=== PATIENT | male | born 1975 | race Hispanic/Latino ===

== ENCOUNTER 2018-08-17 03:36 | Inpatient (IN) | payer MEDICARE, MEDICAID ==
[2018-08-17] MEDS ORDERED: Sodium Chloride 0.9% 1,000 ML IV ONE ×2 (03:55→05:45)
--- NOTE | 2018-08-17 04:01 | C.PDOC ---
History Of Present Illness 42 year old male presents to the ER requesting ETOH detox. Patient is a daily drinker, states his last drink was 0200 yesterday. Patient is c/o tremors. He denies abdominal pain, nausea, vomiting, chest pain, SOB, suicidal/homicidal ideations. Time Seen by Provider: 08/17/18 03:39 Chief Complaint (Nursing): Substance Abuse History Per: Patient History/Exam Limitations: no limitations Onset/Duration Of Symptoms: Hrs Current Symptoms Are (Timing): Still Present Suicide/Self Injury Attempted (Context): None Modifying Factor(s): Alcohol Severity: Moderate Associated Symptoms: denies: Suicidal Thoughts, Other (Homicidal ideation) Involuntary Hold By: None Recent travel outside of the [place]: No Past Medical History Reviewed: Historical Data, Nursing Documentation, Vital Signs Vital Signs: Last Vital Signs Temp 97.9 F 08/17/18 03:38 Pulse 120 H 08/17/18 03:38 Resp BP 136/82 08/17/18 03:38 Pulse Ox 99 08/17/18 03:38 - Medical History PMH: Seizures (withdrawal seizure) Family History: States: No Known Family Hx - Social History Hx Alcohol Use: Yes Hx Substance Use: Yes - Immunization History Hx Tetanus Toxoid Vaccination: No Hx Influenza Vaccination: No Hx Pneumococcal Vaccination: No Review Of Systems Except As Marked, All Systems Reviewed And Found Negative. Constitutional: Negative for: Fever, Chills Cardiovascular: Negative for: Chest Pain Respiratory: Negative for: Shortness of Breath Gastrointestinal: Negative for: Nausea, Vomiting, Abdominal Pain Psych: Positive for: Withdrawal (Tremors) Physical Exam - Physical Exam Appears: Well, Non-toxic, Other (appears mildly uncomfortable ) Skin: Normal Color, Warm, Dry Head: Normacephalic Eye(s): bilateral: Normal Inspection Oral Mucosa: Moist Chest: Symmetrical, No Tenderness Cardiovascular: Rhythm Regular (Tachycardic) Respiratory: Normal Breath Sounds, No Rales, No Rhonchi, No Wheezing Gastrointestinal/Abdominal: Normal Exam, Bowel Sounds, Soft, No Tenderness Extremity: Normal ROM Neurological/Psych: Oriented x3, Other (Moderate tremors of the extremities, no tongue fasciculations) ED Course And Treatment - Laboratory Results Result Diagrams: 08/17/18 04:06 08/17/18 04:06 O2 Sat by Pulse Oximetry: 99 (Room air) Pulse Ox Interpretation: Normal Progress Note: Blood work, UA, UDS ordered and reviewed. Patient given IV NS bolus, IV ativan, PO Librium. Reevaluation Time: 06:30 Reassessment Condition: Improved (Patient resting comfortably, states he feels better, no current tremors. Pending UA, UDS.) Disposition - Disposition Disposition Time: 07:00 Condition: STABLE Forms: [facility] (Bengali) - Clinical Impression Clinical Impression: Alcohol dependence - Scribe Statement The provider has reviewed the documentation as recorded by the Scribe Shant Morrow All medical record entries made by the Scribe were at my direction and personally dictated by me. I have reviewed the chart and agree that the record accurately reflects my personal performance of the history, physical exam, medical decision making, and the department course for this patient. I have also personally directed, reviewed, and agree with the discharge instructions and disposition. Physician Patient Turnover Patient Signed Over To: Gil Lewis V Handoff Comments: pending UA, UDS, crisis
[2018-08-17 04:10] LABS: BASO # 0.1 K/uL (0.0-0.2); BASO % 0.8 % (0.0-2.0); EOS % 0.4 % (0.0-4.0); HEMOGLOBIN 14.2 g/dL (12.0-18.0); LYMPH # 1.8 K/uL (1.0-4.3); LYMPH % 26.7 % (20.0-40.0); MEAN CELL VOLUME 97.3 fL (80.0-94.0); MEAN CORPUSCULAR HEMOGLOBIN 33.9 pg (27.0-31.0); MEAN CORPUSCULAR HGB CONC 34.8 g/dL (33.0-37.0); MEAN PLATELET VOLUME 8.8 fL (7.2-11.7); MONO # 0.8 K/uL (0.0-0.8); MONO % 11.6 % (0.0-10.0); NEUT % 60.5 % (50.0-75.0); RBC 4.18 Mil/uL (4.40-5.90); RED CELL DISTRIBUTION WIDTH 14.5 % (11.5-14.5); WHITE BLOOD COUNT 6.7 K/uL (4.8-10.8)
[2018-08-17 04:23] LABS: ALB/GLOB RATIO 1.5 (1.0-2.1); ALBUMIN 4.9 g/dL (3.5-5.0); ALT/SGPT 139 U/L (21-72); AST/SGOT 216 U/L (17-59); BLOOD UREA NITROGEN 11 mg/dL (9-20); CALCIUM 9.4 mg/dl (8.6-10.4); GFR NON-AFRICAN AMERICAN > 60
[2018-08-17] MEDS ORDERED: Potassium Chloride 20 mEq ER Tab PO STA (05:17)
[2018-08-17] MEDS ORDERED: Potassium Chloride 20 mEq ER Tab PO ONE ×2 (05:23→07:40)
[2018-08-17] MEDS ORDERED: Sodium Chloride 0.9% 1,000 ML ONE (05:56)
[2018-08-17 06:58] LABS: SQUAMOUS EPITHIAL < 1 /hpf (0-5); URINE BILIRUBIN NEGATIVE (NEGATIVE); URINE BLOOD 2+ (NEGATIVE); URINE CLARITY Hazy (Clear); URINE COLOR Yellow (YELLOW); URINE GLUCOSE (UA) 2+ mg/dL (Normal); URINE LEUKOCYTE ESTERASE 2+ Leu/uL (Negative); URINE PROTEIN NEGATIVE (NEGATIVE); URINE UROBILINOGEN NORMAL mg/dL (0.2-1.0)
[2018-08-17 07:06] LABS: BARBITURATES, UR NEGATIVE (NEGATIVE); BENZODIAZEPINES, UR NEGATIVE (NEGATIVE); OPIATES, UR NEGATIVE (NEGATIVE); PHENCYCLIDINE, UR NEGATIVE (NEGATIVE)
[2018-08-17] MEDS ORDERED: Potassium Chloride 10 mEq ER Tab PO STA (07:24)
--- NOTE | 2018-08-17 08:37 | PCM.PSYCH ---
Initial Psychiatric Evaluation - Initial Psychiatric Evaluation Type of Admission: Voluntary Legal Status: Capacity Chief Complaint (in patient's own words): "Too much alcohol" History of Present Illness and Precipitating Events: The patient was seen, chart reviewed and case discussed. This is a 42-year-old male, single with no child, lives with his mother, unemployed, on disability due to psychosis. He is here for alcohol detox; he drinks up to 20 beers of 12 times cans, for the last 28 years. He states it got worse in his 20s. He reports history of seizures then DTs and he was even given Depakote for seizures. However, his liver is impaired and he agreed to change the medication to a safer one. He was in detox 4 times and rehab also 4 times. His longest sobriety was 8 months. He used cocaine heroine and marijuana in the past but average was about once a month. He smokes 1 pack/day cigarettes. The patient was diagnosed with schizophrenia, however he reports mostly depressive symptoms and vague auditory hallucinations. He denies feeling paranoid or having other types of hallucinations. He is noncompliant with his medications. The patient does not have a thought disorder and his affect is only constricted. It is likely that the diagnosis is schizoaffective or even perhaps bipolar disorder. Patient denies suicidal and homicidal ideation. Past psychiatric: He admits to having been hospitalized a couple of times in psychiatry he had one suicide attempt "long ago" Family psych history: Unknown Medical history: Diabetes, type I-noncompliant with treatment. Current Medications: Active Medications Generic Name Dose Route Start Last Admin Trade Name Freq PRN Reason Stop Dose Admin Clonidine HCl 0.1 mg 08/17/18 08:34 Catapres PO Q4H PRN Symptoms of alcohol withdrawl Folic Acid 1 mg 08/17/18 10:00 Folic Acid PO DAILY ANU Lorazepam 1 mg 08/17/18 08:34 Ativan PO Q4H PRN Symptoms of alcohol withdrawl Lorazepam 0 mg 08/17/18 10:00 Ativan PO 08/22/18 09:59 .TAPER ANU Taper Multivitamins 1 tab 08/17/18 10:00 Hexavitamin PO DAILY ANU Thiamine HCl 100 mg 08/17/18 10:00 Vitamin B1 Tab PO DAILY ANU Past Psychiatric History - Past Psychiatric History Previous Treatment History: Inpatient Pertinent Medical Hx (Current Medical&Sleep Prob, Allergies): Allergies Allergy/AdvReac Type Severity Reaction Status Date / Time phenytoin [From Dilantin] Allergy SWELLING Verified 08/17/18 03:54 Divalproex [Depakote DR(*BID*)] 500 mg PO BID 08/17/18 Insulin Glargine, Recombina [Lantus] 15 unit SC HS 08/17/18 Insulin Lispro [Humalog (Insulin Lispro)] 100 unit SQ TIDAC 08/17/18 Propranolol [Inderal] 20 mg PO DAILY 08/17/18 Review of Systems - Neurological Neurological: Tremor - Psychiatric Psychiatric: Abnormal Sleep Pattern, Anhedonia, Anxiety, Auditory Hallucinations, Change in Appetite, Depression, Difficulty Concentrating, H allucinations, Mood Swings. absent: Homicidal Ideation, Paranoia, Suicidal Ideation Mental Status Examination - Personal Presentation Personal Presentation: Looks stated age - Affect Affect: Constricted - Motor Activity Motor Activity: Calm - Reliability in Providing Information Reliability in Providing Information: Good - Speech Speech: Organized - Mood Mood: Depressed, Anxious - Formal Thought Process Formal Thought Process: No Impairment - Cognitive Functions Orientation: Person, Place Sensorium: Alert Attention/Concentration: Easily distracted Estimate of Intelligence: Average Judgement: Intact, as evidence by: Insight regarding need for hospitalization Memory: Recent intact, as evidence by: Ability to recall events of the day, Remote intact, as evidenced by: Abilit to recall sig. life events - Risk Risk: Seizure, Withdrawal, Diminished functioning - Strength & Assets Inventory Strength & Assets Inventory: Family support, Cooperative - Limitations Limitations: Other DSM 5 DX - DSM 5 DSM 5 Diagnosis: Alcohol withdrawal Alcohol use disorder, severe Schizoaffective disorder, depressed Cannabis use disorder, mild Tobacco use disorder, severe Diabetes, type I - Recommended/Plan of Treatment Treatment Recommendations and Plan of Treatment: Taper with lorazepam Gabapentin for augmentation Abilify for psychotic symptoms Remeron for depressive symptoms Keppra for alcohol withdrawal induced seizure risk As needed medications All risks, benefits and alternatives of the meds discussed, and the pt agreed and understood. Attend groups and activities Supportive therapy and psychoeducation [place] for abstinence CBT for relapse prevention Encourage MAT Refer to rehab or IOP, and self-help groups Teach healthy lifestyle methods, i.e. diet, exercise, meditation Smoking cessation with [place] Nicotine patch if needed 34 min Projected ELOS: 5 days Prognosis: Good with treatment Discharge Plan and Discharge Criteria: No withdrawal symptoms Refer to rehab - Smoking Cessation Smoking Cessation Initiated: Yes
[2018-08-17] MEDS: Multiple Vitamins Tab PO SCH (10:15)
--- NOTE | 2018-08-17 10:45 | PCM.BM ---
<Yimi Marti - Last Filed: 08/17/18 10:43> Treatment assets and liabiliti Patient Assests: cooperative, motivated, ADL independent, cognitively intact Patient Liabilities: substance abuse - Milieu Protocol Maintain good personal hygiene: daily Encourage regular showers, daily Assist patient to perform ADL's, every shift Remind patient to perform daily oral care Maintain personal safety: daily Educate patient to report safety concerns to staff, daily Monitor environment for contraband/sharps Medication safety: Monitor for expected outcome, potential side effects: daily, Assess barriers to learning: daily, Assess readiness for medication education: daily <Aron Gallegos - Last Filed: 08/17/18 18:48> - Diagnosis (1) Alcohol dependence Status: Acute Interventions: 08/17/18 18:48 * Assess 7x/week regarding severity of withdrawal * Educate regarding risks, benefits, side effects and alternatives of medications * Use Motivational Interviewing for abstinence * Use CBT for relapse prevention * Medication management for withdrawal symptoms * Encourage medication assisted treatment * <Charlotte Dotson - Last Filed: 08/22/18 09:28> Family Contact Family involvement: Rushliy/SO not involved - Goals for Treatment Patient goals for treatment: Complete detox and apply for short-term inpatient rehab. Discharge/Continuing Care - Education Needs Education Needs: Patient Medication, Patient Diagnosis/Disease Process, Patient Coping Skills, Patient Anger Management skills, Patient Placement options, Patient Community resources - Discharge Discharge Criteria: No longer exhibiting s/s of withdrawal, Reduction of target symptoms Discharge to:: Substance Abuse Rehab - Treatment Team Participation Patient/Family/SO Statement: 08/22/18 09:27 "I wanna go to short-term rehab if I can..." Discussed with Family/SO: No Was Patient/Family/SO present at Treatment Team Meeting: Yes
[2018-08-17] MEDS ORDERED: (Novolog) Insulin Aspart, Recombinant 100 u/ml 10 ml vial SC SCH (11:30)
[2018-08-17] MEDS: (Novolog) Insulin Aspart, Recombinant 100 u/ml 10 ml vial SC SCH ×3 (11:58→21:20)
[2018-08-17] MEDS ORDERED: (Lantus) Insulin Glargine, Recombinant SC SCH (22:00)
[2018-08-18] MEDS: (Novolog) Insulin Aspart, Recombinant 100 u/ml 10 ml vial SC SCH ×4 (08:20→21:08)
[2018-08-18 08:48] LABS: ALB/GLOB RATIO 1.6 (1.0-2.1); ALBUMIN 4.8 g/dL (3.5-5.0); ALT/SGPT 196 U/L (21-72); AST/SGOT 228 U/L (17-59); BLOOD UREA NITROGEN 7 mg/dL (9-20); CALCIUM 9.4 mg/dl (8.6-10.4); GFR NON-AFRICAN AMERICAN > 60
[2018-08-18] MEDS: Multiple Vitamins Tab PO SCH (10:55)
--- NOTE | 2018-08-18 13:38 | PCM.PYCHPN ---
Psychiatric Progress Note - Psychiatric Progress Note Patient seen today, length of contact: 17 min Patient Chief Complaint: "I'm still shaky" Problems Identified/Issues Discussed: The pt is seen, chart reviewed, case discussed with staff. The pt is compliant with medications and reports no side-effects. Symptoms are improving but needs more time to stabilize. Still in significant wdw and his blood glucose is not well-controlled Pt attends some groups and activities. Support given, psycho-education provided. After care discussed. Medication Change: Yes (etox changes daily) Medical Record Reviewed: Yes Mental Status Examination - Cognitive Function Orientation: Person, Place, Situation, Time Memory: Intact Attention: WNL Concentration: Poor Association: WNL Fund of Knowledge: WNL - Mood Mood: Depressed, Anxious - Affect Affect: Constricted - Speech Speech: Appropriate - Formal Thought Process Formal Thought Process: No Impairment - Suicidal Ideation Suicidal Ideation: No - Homicidal Ideation Homicidal Ideation: No Goal/Treatment Plan - Goal/Treatment Plan Need for Continued Stay: Discharge may exacerbated symptoms, Severe functional impairment Progress Toward Problem(s) and Goals/Treatment Plan: Taper with lorazepam Gabapentin for augmentation Abilify for psychotic symptoms Remeron for depressive symptoms Keppra for alcohol withdrawal induced seizure risk As needed medications All risks, benefits and alternatives of the meds discussed, and the pt agreed and understood. Attend groups and activities Supportive therapy and psychoeducation [place] for abstinence CBT for relapse prevention Encourage MAT Refer to rehab or IOP, and self-help groups Teach healthy lifestyle methods, i.e. diet, exercise, meditation Smoking cessation with [place] Nicotine patch if needed
[2018-08-18] MEDS ORDERED: Glucagon Recombinant 1 mg Inj IM PRN (17:29)
[2018-08-18] MEDS ORDERED: Dextrose 50% SYRINGE Inj (50 ml) IVP PRN (17:29)
--- NOTE | 2018-08-18 19:53 | CP.PCM.CON ---
History of Present Illness - History of Present Illness History of Present Illness: PGY-[address] Ziegler service cc: uncontrolled DM Patient is a 42 year old male with past medical history of alcohol use disorder, diabetes mellitus, peripheral neuropathy in both upper and lower extremities and pelvic area, that was seen in the detox unit for elevated glucose levels due to uncontrolled diabetes. Patient was admitted to the detox unit on friday 08/17, coming from another facility in [place], where he was cleared for discharge and was instructed to be admitted to the detox unit at our facility. Patient presented to the ED after having been drinking the whole day. Patient states he drinks on a daily basis, about 18 beers with some shots in between. Patient has been drinking for the past 20 years. Patient states he has not been complaint with metformin medication, but that he uses insulin on a daily basis and checks his sugars at home, which are usually in the 220 range. Patient admits to unintentional weight loss of approximately 80 pounds and diarrhea for about 1 year. Patient admits to tingling and weakness in leg bilaterally that starts from his feet and extends to his thighs, as well as perineum area and penis. Patient states he is not able to have erections due to having peripheral ne uropathy. Patient admits to tingling and weakness in both his hands. Admits to urinary incontinence, as patient wears diapers. Patient denies fevers, chills, chest pain, shortness of breath, abdominal pain, n/v/c. PMD: Prisca ([place], [place]) Allergies: Dilantin - tongue and all body sores, throat swelling Pmhx: alcohjol use disorder, neuropathy upper, lower extremities and pelvic region, Diabetes Mellitus , seizures/DT, concussions Pshx: peripheral rectal abscess (2016) Meds: metformin (not complaint), Humolog sliding scale, lantus 18 units sc HS Fmhx: mother and father (DM) Sochx: Tobacco use: 1 pack a day for past 28 years, alcohol use: 18 beers and shots every day for the past 20 years, sporadic Multi substance consumption (PCP, heroin, cocaine), but has not consumed drug on daily basis . Lives with mother, currently on social disability Review of Systems - Review of Systems All systems: reviewed and no additional remarkable complaints except Review of Systems: as stated in HPI Past Patient History - Past Medical History & Family History Past Medical History?: Yes - Past Social History Smoking Status: Heavy Smoker > 10 Cigarettes Daily - CARDIAC Hx Cardiac Disorders: No Hx Hypertension: No - PULMONARY Hx Respiratory Disorders: No Hx Tuberculosis: No - NEUROLOGICAL Hx Seizures: Yes (withdrawal seizure) - HEENT Hx HEENT Problems: Yes Other/Comment: Uses eye glasses at all times - RENAL Hx Chronic Kidney Disease: No - ENDOCRINE/METABOLIC Hx Endocrine Disorders: Yes Hx Diabetes Mellitus Type 2: Yes - HEMATOLOGICAL/ONCOLOGICAL Hx Blood Disorders: No Hx Cancer: No Hx Human Immunodeficiency Virus (HIV): No - INTEGUMENTARY Hx Dermatological Problems: No - MUSCULOSKELETAL/RHEUMATOLOGICAL Hx Musculoskeletal Disorders: Yes Hx Falls: Yes Hx Unsteady Gait: Yes - GASTROINTESTINAL Hx Gastrointestinal Disorders: Yes Other/Comment: Uses disposable briefs for urinary dribbling and occ fecal incont. - GENITOURINARY/GYNECOLOGICAL Hx Genitourinary Disorders: Yes Hx Incontinence: Yes Hx Sexually Transmitted Disorders: No Other/Comment: Uses disposable briefs for urinary dribbling and occ fecal incont. - PSYCHIATRIC Hx Substance Use: No - SURGICAL HISTORY Hx Surgeries: Yes Other/Comment: rectal abscess - with surgery - ANESTHESIA Hx Anesthesia: Yes Hx Anesthesia Reactions: No Meds Allergies/Adverse Reactions: Allergies Allergy/AdvReac Type Severity Reaction Status Date / Time phenytoin [From Dilantin] Allergy SWELLING Verified 08/17/18 03:54 - Medications Medications: Current Medications Aripiprazole (Abilify) 10 mg PO QPM [facility] Last Admin: 08/18/18 18:01 Dose: 10 mg Clonidine HCl (Catapres) 0.1 mg PO Q4H PRN PRN Reason: Symptoms of alcohol withdrawl Dextrose (Dextrose 50% Inj) 0 ml IVP .STAT PRN; Protocol PRN Reason: Hypoglycemia Protocol Dextrose (Glutose 15) 0 gm PO .ONCE PRN; Protocol PRN Reason: Hypoglycemia Protocol Folic Acid (Folic Acid) 1 mg PO DAILY [facility] Last Admin: 08/18/18 10:55 Dose: 1 mg Gabapentin (Neurontin) 400 mg PO TID [facility] Last Admin: 08/18/18 17:57 Dose: 400 mg Glucagon (Glucagen Diagnostic Kit) 0 mg IM .STAT PRN; Protocol PRN Reason: Hypoglycemia Protocol Hydroxyzine HCl (Atarax) 25 mg PO Q4H PRN PRN Reason: Anxiety Dextrose (Dextrose 5% In Water 1000 Ml) 1,000 mls @ 0 mls/hr IV .Q0M PRN; Protocol PRN Reason: Hypoglycemia Protocol Ibuprofen (Motrin Tab) 400 mg PO Q6H PRN PRN Reason: Pain, moderate (4-7) Last Admin: 08/18/18 14:44 Dose: 400 mg Insulin Aspart (Novolog) 0 unit SC ACHS [facility]; Protocol Last Admin: 08/18/18 16:34 Dose: 10 units Insulin Glargine (Lantus) 18 unit SC HS [facility] Levetiracetam (Keppra) 250 mg PO BID [facility] Last Admin: 08/18/18 17:57 Dose: 250 mg Loperamide HCl (Imodium) 2 mg PO QID PRN PRN Reason: Loose stools Last Admin: 08/18/18 16:42 Dose: 2 mg Lorazepam (Ativan) 1 mg PO Q4H PRN PRN Reason: Symptoms of alcohol withdrawl Last Admin: 08/18/18 10:55 Dose: 1 mg Lorazepam (Ativan) 1 mg PO Q6H [facility]; Taper Stop: 08/22/18 09:59 Last Admin: 08/18/18 16:40 Dose: 1 mg Mirtazapine (Remeron) 15 mg PO HS [facility] Last Admin: 08/17/18 21:13 Dose: 15 mg Multivitamins (Hexavitamin) 1 tab PO DAILY [facility] Last Admin: 08/18/18 10:55 Dose: 1 tab Nicotine (Nicoderm Cq) 1 patch TD DAILY [facility] Last Admin: 08/18/18 10:55 Dose: 1 patch Thiamine HCl (Vitamin B1 Tab) 100 mg PO DAILY [facility] Last Admin: 08/18/18 10:55 Dose: 100 mg Trazodone HCl (Desyrel) 100 mg PO HS PRN PRN Reason: Insomnia Physical Exam - Constitutional Appears: Non-toxic, No Acute Distress - Head Exam Head Exam: ATRAUMATIC, NORMAL INSPECTION, NORMOCEPHALIC - Eye Exam Eye Exam: EOMI, Normal appearance, PERRL - ENT Exam ENT Exam: Mucous Membranes Moist, Normal Exam - Neck Exam Neck exam: Positive for: Normal Inspection - Respiratory Exam Respiratory Exam: Clear to Auscultation Bilateral, NORMAL BREATHING PATTERN. absent: Accessory Muscle Use, Rales, Rhonchi, Wheezes, Respiratory Distress - Cardiovascular Exam Cardiovascular Exam: REGULAR RHYTHM, +S1, +S2 - GI/Abdominal Exam GI & Abdominal Exam: Normal Bowel Sounds, Soft. absent: Distended, Guarding - Extremities Exam Extremities exam: Negative for: joint swelling, pedal edema, tenderness - Back Exam Back exam: FULL ROM, NORMAL INSPECTION. absent: CVA tenderness (L), CVA tenderness (R) - Neurological Exam Neurological exam: Abnormal Gait (walks with cane supporting right lower extremity), Alert, CN II-XII Intact, Oriented x3 - Psychiatric Exam Psychiatric exam: Flat Affect, Normal Mood - Skin Skin Exam: Dry, Intact, Normal Color, Warm Results - Vital Signs Recent Vital Signs: Last Vital Signs Temp 97.5 F L 08/18/18 16:50 Pulse 76 08/18/18 16:50 Resp 18 08/18/18 16:50 BP 123/70 08/18/18 16:50 Pulse Ox 100 08/18/18 16:50 - Labs Result Diagrams: 08/17/18 04:06 08/18/18 08:08 Labs: Laboratory Results - last 24 hr 08/17/18 08/18/18 08/18/18 21:12 06:00 08:08 Sodium 135 Potassium 3.8 Chloride 97 L Carbon Dioxide 27 Anion Gap 14 BUN 7 L Creatinine 0.7 L Est GFR ( Amer) > 60 Est GFR (Non-Af Amer) > 60 POC Glucose (mg/dL) 364 H 223 H Random Glucose 161 H D Hemoglobin A1c Calcium 9.4 Phosphorus 4.3 Magnesium 2.2 Total Bilirubin 1.1 AST 228 H ALT 196 H D Alkaline Phosphatase 84 Total Protein 7.7 Albumin 4.8 Globulin 2.9 Albumin/Globulin Ratio 1.6 TSH 3rd Generation 1.79 08/18/18 08/18/18 08/18/18 08:08 11:56 16:17 Sodium Potassium Chloride Carbon Dioxide Anion Gap BUN Creatinine Est GFR ( Amer) Est GFR (Non-Af Amer) POC Glucose (mg/dL) 310 H 479 H* Random Glucose Hemoglobin A1c 10.3 H Calcium Phosphorus Magnesium Total Bilirubin AST ALT Alkaline Phosphatase Total Protein Albumin Globulin Albumin/Globulin Ratio TSH 3rd Generation Assessment & Plan - Assessment and Plan (Free Text) Plan: Uncontrolled Diabetes Mellitus type II - HbA1C previous - 10.2, current - 10.3 - Start lantus 20 Units SC HS - Continue Novolog sc ACHS - Start Novolog 4 units SC TIDAC - Lisinopril 2.5mg Po QD - Hypoglycemia protocol - accuchecks ACHS - dietary referral for DM - help is appreciated - will consider endocrinology consult if glucose levels continue to be uncontrolled Unintentional weight loss - reports 80 pound weight loss in the last year - reports diarrhea for the past year - CT abdomen and pelvis PO contrast - f/u Peripheral neuropathy - continue gabapentin 400mg PO TID hx of seizure/DT - continue keppra 250 mg PO BID Tobacco use disorder - Continue nicotine patch 21/24hr alcohol use disorder - Continue management as per psych Plan discussed with Dr Karlie Rodríguez, PGY-1 - Date & Time Date: 08/18/18 Time: 17:40
[2018-08-18] MEDS ORDERED: Iohexol 240 (50 ml) PO ONE (21:00)
[2018-08-18] MEDS: (Lantus) Insulin Glargine, Recombinant SC SCH (21:06)
[2018-08-18] MEDS ORDERED: (Lantus) Insulin Glargine, Recombinant SC SCH (22:00)
[2018-08-19] MEDS: (Novolog) Insulin Aspart, Recombinant 100 u/ml 10 ml vial SC SCH ×8 (07:50→21:12)
[2018-08-19] MEDS: Multiple Vitamins Tab PO SCH (09:51)
[2018-08-19 10:12] VITALS: RESP 18
--- NOTE | 2018-08-19 10:57 | PCM.PYCHPN ---
Psychiatric Progress Note - Psychiatric Progress Note Patient seen today, length of contact: 17 min Patient Chief Complaint: I am not feeling good.' Problems Identified/Issues Discussed: Patient was seen and evaluated, chart reviewed and discussed with the staff. Patient still reports withdrawal symptoms and still reports sweating, headaches, anxiety and shakes. Patient reports depressed mood, poor sleep and poor appetite. However he denies any feelings of hopelessness and helplessness. He denies any auditory hallucinations or any paranoia. He is compliant with the withdrawal medications and denies any side effects Symptoms are improving but he needs to stay longer for further stabilization. Supportive therapy was given Medication Change: Yes (etox changes daily) Medical Record Reviewed: Yes Mental Status Examination - Cognitive Function Orientation: Person, Place, Situation, Time Memory: Intact Attention: WNL Concentration: Poor Association: WNL Fund of Knowledge: WNL - Mood Mood: Depressed, Anxious - Affect Affect: Constricted - Speech Speech: Appropriate - Formal Thought Process Formal Thought Process: No Impairment - Suicidal Ideation Suicidal Ideation: No - Homicidal Ideation Homicidal Ideation: No Goal/Treatment Plan - Goal/Treatment Plan Need for Continued Stay: Discharge may exacerbated symptoms, Severe functional impairment Progress Toward Problem(s) and Goals/Treatment Plan: Alcohol withdrawal Alcohol use disorder, severe Schizoaffective disorder, depressed Cannabis use disorder, mild Tobacco use disorder, severe Diabetes, type I Taper with lorazepam Gabapentin for augmentation Abilify for psychotic symptoms Remeron for depressive symptoms Keppra for alcohol withdrawal induced seizure risk As needed medications All risks, benefits and alternatives of the meds discussed, and the pt agreed and understood. Attend groups and activities Supportive therapy and psychoeducation [place] for abstinence CBT for relapse prevention Encourage MAT Refer to rehab or IOP, and self-help groups Teach healthy lifestyle methods, i.e. diet, exercise, meditation Smoking cessation with [place] Nicotine patch if needed
--- NOTE | 2018-08-19 12:29 | CT ---
Date of service: 08/18/2018 PROCEDURE: CT Abdomen and Pelvis with contrast HISTORY: unintentional weight loss, diarrhea x 1 year COMPARISON: None. TECHNIQUE: Helical CT of the abdomen and pelvis was performed following oral contrast administration only. Intravenous contrast was not administered as per referring physician request. Coronal and sagittal reformats were generated. Contrast dose: None Radiation dose: Total exam DLP = 219.7 mGy-cm. This CT exam was performed using one or more of the following dose reduction techniques: Automated exposure control, adjustment of the mA and/or kV according to patient size, and/or use of iterative reconstruction technique. FINDINGS: A markedly thin body habitus is identified. There is minimal intra peritoneal fat in the abdomen. LOWER THORAX: Unremarkable. LIVER: Unremarkable. No gross lesion or ductal dilatation. GALLBLADDER AND BILE DUCTS: Contracted and otherwise unremarkable appearing. PANCREAS: Unremarkable. No gross lesion or ductal dilatation. SPLEEN: Unremarkable. ADRENALS: Unremarkable. No mass. KIDNEYS AND URETERS: Prominent left extrarenal pelvis. No definite obstructive uropathy bilaterally. No radiodense urolithiasis appreciated or perinephric reactive change. VASCULATURE: Unremarkable. No aortic aneurysm. No aortic atherosclerotic calcification or mural plaque present. BOWEL: Oral contrast moderately distends the stomach with retained food obscuring the gastric lumen. No bowel obstruction identified however there is prominent retained fecal material scattered throughout the large bowel suspicious for constipation. No suspicious findings seen related to opacified small bowel loops. APPENDIX: Normal appendix. PERITONEUM: Unremarkable. No free fluid. No free air. LYMPH NODES: Unremarkable. No enlarged lymph nodes. BLADDER: Borderline mural thickening related to a distended gallbladder without focal nodularity or urolithiasis in the lumen. Clinically correlate. Limited cystitis or outlet obstruction is not excluded. REPRODUCTIVE: Unremarkable. BONES: No acute fracture. OTHER FINDINGS: None. IMPRESSION: 1. No definitive acute or suspicious abdominal or pelvic findings other than borderline thickening of the urinary bladder. Center potential cystitis or outlet obstruction. Clinically correlate further. The lack of intravenous contrast agents limits interpretation as well as the lack of intra peritoneal fat in this patient. 2. Prominent extrarenal pelvis left kidney. No obstructive uropathy bilaterally nevertheless. Concordant preliminary report from [employer], 08/18/2018 10:49 p.m..
--- NOTE | 2018-08-19 18:56 | CP.PCM.PN ---
Subjective - Date & Time of Evaluation Date of Evaluation: 08/19/18 Time of Evaluation: 18:49 - Subjective Subjective: PGY-[address] Ziegler Patient seen and examined at bedside. No acute events overnight. Patient complaining of withdrawal symptoms including blurry vision, tremors, and some numbness in his hands bilaterally. Otherwise patient has no new complaints at this time. Patient denies chest pain, shortness of breath, headache. Objective - Vital Signs/Intake and Output Vital Signs (last 24 hours): Temp Pulse Resp BP Pulse Ox 97.6 F 90 18 120/68 97 08/19/18 16:43 08/19/18 16:43 08/19/18 16:43 08/19/18 16:43 08/19/18 16:43 - Medications Medications: Current Medications Aripiprazole (Abilify) 10 mg PO QPM [facility] Last Admin: 08/19/18 18:01 Dose: 10 mg Ciprofloxacin (Cipro) 500 mg PO BID [facility]; Protocol Stop: 08/25/18 10:00 Clonidine HCl (Catapres) 0.1 mg PO Q4H PRN PRN Reason: Symptoms of alcohol withdrawl Dextrose (Dextrose 50% Inj) 0 ml IVP .STAT PRN; Protocol PRN Reason: Hypoglycemia Protocol Dextrose (Glutose 15) 0 gm PO .ONCE PRN; Protocol PRN Reason: Hypoglycemia Protocol Folic Acid (Folic Acid) 1 mg PO DAILY [facility] Last Admin: 08/19/18 09:50 Dose: 1 mg Gabapentin (Neurontin) 400 mg PO TID [facility] Last Admin: 08/19/18 18:01 Dose: 400 mg Glucagon (Glucagen Diagnostic Kit) 0 mg IM .STAT PRN; Protocol PRN Reason: Hypoglycemia Protocol Hydroxyzine HCl (Atarax) 25 mg PO Q4H PRN PRN Reason: Anxiety Last Admin: 08/19/18 14:23 Dose: 25 mg Dextrose (Dextrose 5% In Water 1000 Ml) 1,000 mls @ 0 mls/hr IV .Q0M PRN; Protocol PRN Reason: Hypoglycemia Protocol Ibuprofen (Motrin Tab) 400 mg PO Q6H PRN PRN Reason: Pain, moderate (4-7) Last Admin: 08/19/18 07:56 Dose: 400 mg Insulin Aspart (Novolog) 0 unit SC ACHS [facility]; Protocol Insulin Aspart (Novolog) 8 unit SC TIDAC [facility] Insulin Glargine (Lantus) 20 unit SC HS [facility] Last Admin: 08/18/18 21:06 Dose: 20 units Levetiracetam (Keppra) 250 mg PO BID [facility] Last Admin: 08/19/18 18:01 Dose: 250 mg Lisinopril (Zestril) 2.5 mg PO DAILY [facility] Last Admin: 08/19/18 09:50 Dose: Not Given Loperamide HCl (Imodium) 2 mg PO QID PRN PRN Reason: Loose stools Last Admin: 08/19/18 13:52 Dose: 2 mg Lorazepam (Ativan) 1 mg PO Q4H PRN PRN Reason: Symptoms of alcohol withdrawl Last Admin: 08/18/18 10:55 Dose: 1 mg Lorazepam (Ativan) 1 mg PO Q8H [facility]; Taper Stop: 08/22/18 09:59 Last Admin: 08/19/18 18:01 Dose: 1 mg Mirtazapine (Remeron) 15 mg PO [facility] Last Admin: 08/18/18 21:09 Dose: 15 mg Multivitamins (Hexavitamin) 1 tab PO DAILY [facility] Last Admin: 08/19/18 09:51 Dose: 1 tab Nicotine (Nicoderm Cq) 1 patch TD DAILY [facility] Last Admin: 08/19/18 09:50 Dose: 1 patch Thiamine HCl (Vitamin B1 Tab) 100 mg PO DAILY [facility] Last Admin: 08/19/18 09:50 Dose: 100 mg Trazodone HCl (Desyrel) 100 mg PO HS PRN PRN Reason: Insomnia - Labs Labs: 08/17/18 04:06 08/18/18 08:08 - Constitutional Appears: No Acute Distress - Head Exam Head Exam: ATRAUMATIC, NORMAL INSPECTION - Eye Exam Eye Exam: EOMI, Normal appearance - ENT Exam ENT Exam: Mucous Membranes Moist - Respiratory Exam Respiratory Exam: Clear to Ausculation Bilateral, NORMAL BREATHING PATTERN. absent: Rhonchi, Wheezes - Cardiovascular Exam Cardiovascular Exam: REGULAR RHYTHM, +S1, +S2 - GI/Abdominal Exam GI & Abdominal Exam: Soft, Normal Bowel Sounds. absent: Tenderness - Extremities Exam Extremities Exam: Normal Inspection. absent: Pedal Edema - Back Exam Back Exam: absent: CVA tenderness (R) - Neurological Exam Neurological Exam: Alert, Awake, Oriented x3 - Psychiatric Exam Psychiatric exam: Flat Affect, Normal Mood - Skin Skin Exam: Dry, Intact Assessment and Plan - Assessment and Plan (Free Text) Assessment: Uncontrolled Diabetes Mellitus type II - Patient POC glucose was 416 today and mealtime coverage was given - insulin regimen adjusted as below - HbA1C previous - 10.2, current - 10.3 - Lantus 20 Units SC HS - Continue Novolog sc ACHS - Novolog increased to 8 units SC TIDAC (from 4U) - ISS switched from medium to low dose - Lisinopril 2.5mg Po QD - Hypoglycemia protocol - accuchecks ACHS - dietary referral for DM - help is appreciated - will consider endocrinology consult if glucose levels continue to be uncontrolled UTI - Urine cultures positive for gram + Cocci - Start Cipro 500mg PO BID x5 days Unintentional weight loss - reports 80 pound weight loss in the last year - reports diarrhea for the past year - CT abdomen and pelvis PO contrast 08/18: - No definitive or suspicious abdo mookie or pelvic findings other than borderline thickening of the bladder. Center potential cystitis or outlet obstruction. Clinically correlate further. The lack of IV contrast limits interpretation. Prominent extrarenal pelvis left kidney. No obstructive uropathy bilaterally. Prominent extrarenal pelvis left kidney. No obstructive uropathy bilaterally. Peripheral neuropathy - continue gabapentin 400mg PO TID hx of seizure/DT - continue keppra 250 mg PO BID Tobacco use disorder - Continue nicotine patch 21/24hr alcohol use disorder - Continue management as per psych Plan discussed with Dr Karlie Anderson, PGY-1
[2018-08-19] MEDS: (Lantus) Insulin Glargine, Recombinant SC SCH (21:17)
[2018-08-20 06:49] LABS: BASO # 0.1 K/uL (0.0-0.2); BASO % 0.7 % (0.0-2.0); EOS # 0.2 K/uL (0.0-0.7); EOS % 1.7 % (0.0-4.0); HEMOGLOBIN 12.5 g/dL (12.0-18.0); LYMPH # 4.2 K/uL (1.0-4.3); LYMPH % 45.1 % (20.0-40.0); MEAN CORPUSCULAR HEMOGLOBIN 33.6 pg (27.0-31.0); MEAN CORPUSCULAR HGB CONC 34.3 g/dL (33.0-37.0); MONO # 1.2 K/uL (0.0-0.8); NEUT # 3.7 K/uL (1.8-7.0); NEUT % 39.5 % (50.0-75.0); NRBC % 0.1 % (0.0-2.0); RBC 3.72 Mil/uL (4.40-5.90); RED CELL DISTRIBUTION WIDTH 13.9 % (11.5-14.5); WHITE BLOOD COUNT 9.4 K/uL (4.8-10.8)
[2018-08-20] MEDS ORDERED: (Novolog) Insulin Aspart, Recombinant 100 u/ml 10 ml vial SC SCH (07:30)
[2018-08-20 08:08] LABS: ALB/GLOB RATIO 1.6 (1.0-2.1); ALBUMIN 3.9 g/dL (3.5-5.0); ALT/SGPT 138 U/L (21-72); AST/SGOT 114 U/L (17-59); BLOOD UREA NITROGEN 6 mg/dL (9-20); CALCIUM 8.6 mg/dl (8.6-10.4); GFR NON-AFRICAN AMERICAN > 60
[2018-08-20] MEDS: (Novolog) Insulin Aspart, Recombinant 100 u/ml 10 ml vial SC SCH ×7 (08:30→21:26)
[2018-08-20] MEDS ORDERED: Potassium Chloride 20 mEq ER Tab PO ONE (08:46)
--- NOTE | 2018-08-20 10:04 | CP.PCM.PN ---
Subjective - Date & Time of Evaluation Date of Evaluation: 08/20/18 Time of Evaluation: 10:04 - Subjective Subjective: PGY-[address] Maura Hsieh Patient seen and examined at bedside. No acute events overnight per nursing. Patient did not have any new complaints at this time including headache, dizziness, fatigue. His sugars have been better controlled today- will continue to monitor accuchecks. Objective - Vital Signs/Intake and Output Vital Signs (last 24 hours): Temp Pulse Resp BP Pulse Ox 97.3 F L 77 18 99/62 L 97 08/20/18 06:00 08/20/18 06:00 08/20/18 06:00 08/20/18 06:00 08/20/18 06:00 - Medications Medications: Current Medications Aripiprazole (Abilify) 10 mg PO QPM [facility] Last Admin: 08/19/18 18:01 Dose: 10 mg Ciprofloxacin (Cipro) 500 mg PO BID [facility]; Protocol Stop: 08/25/18 10:00 Clonidine HCl (Catapres) 0.1 mg PO Q4H PRN PRN Reason: Symptoms of alcohol withdrawl Dextrose (Dextrose 50% Inj) 0 ml IVP .STAT PRN; Protocol PRN Reason: Hypoglycemia Protocol Dextrose (Glutose 15) 0 gm PO .ONCE PRN; Protocol PRN Reason: Hypoglycemia Protocol Folic Acid (Folic Acid) 1 mg PO DAILY [facility] Last Admin: 08/19/18 09:50 Dose: 1 mg Gabapentin (Neurontin) 400 mg PO TID [facility] Last Admin: 08/19/18 18:01 Dose: 400 mg Glucagon (Glucagen Diagnostic Kit) 0 mg IM .STAT PRN; Protocol PRN Reason: Hypoglycemia Protocol Hydroxyzine HCl (Atarax) 25 mg PO Q4H PRN PRN Reason: Anxiety Last Admin: 08/19/18 14:23 Dose: 25 mg Dextrose (Dextrose 5% In Water 1000 Ml) 1,000 mls @ 0 mls/hr IV .Q0M PRN; Protocol PRN Reason: Hypoglycemia Protocol Ibuprofen (Motrin Tab) 400 mg PO Q6H PRN PRN Reason: Pain, moderate (4-7) Last Admin: 08/19/18 07:56 Dose: 400 mg Insulin Aspart (Novolog) 0 unit SC ACHS [facility]; Protocol Last Admin: 12/26/18 08:30 Dose: 4 units Insulin Aspart (Novolog) 8 unit SC TIDAC [facility] Last Admin: 08/20/18 09:03 Dose: 8 unit Insulin Glargine (Lantus) 20 unit SC HS [facility] Last Admin: 08/19/18 21:17 Dose: 20 units Levetiracetam (Keppra) 250 mg PO BID [facility] Last Admin: 08/19/18 18:01 Dose: 250 mg Lisinopril (Zestril) 2.5 mg PO DAILY [facility] Last Admin: 08/19/18 09:50 Dose: Not Given Loperamide HCl (Imodium) 2 mg PO QID PRN PRN Reason: Loose stools Last Admin: 08/20/18 07:37 Dose: 2 mg Lorazepam (Ativan) 1 mg PO Q4H PRN PRN Reason: Symptoms of alcohol withdrawl Last Admin: 08/18/18 10:55 Dose: 1 mg Lorazepam (Ativan) 1 mg PO Q12H [facility]; Taper Stop: 08/22/18 09:59 Last Admin: 08/20/18 01:28 Dose: 1 mg Mirtazapine (Remeron) 15 mg PO [facility] Last Admin: 08/19/18 21:19 Dose: 15 mg Multivitamins (Hexavitamin) 1 tab PO DAILY [facility] Last Admin: 08/19/18 09:51 Dose: 1 tab Nicotine (Nicoderm Cq) 1 patch TD DAILY [facility] Last Admin: 08/19/18 09:50 Dose: 1 patch Thiamine HCl (Vitamin B1 Tab) 100 mg PO DAILY [facility] Last Admin: 08/19/18 09:50 Dose: 100 mg Trazodone HCl (Desyrel) 100 mg PO HS PRN PRN Reason: Insomnia Last Admin: 08/19/18 21:18 Dose: 100 mg - Labs Labs: 08/20/18 04:00 08/20/18 06:42 - Constitutional Appears: No Acute Distress - Head Exam Head Exam: ATRAUMATIC, NORMAL INSPECTION - Eye Exam Eye Exam: EOMI, Normal appearance - ENT Exam ENT Exam: Mucous Membranes Moist - Neck Exam Neck Exam: absent: Tenderness - Respiratory Exam Respiratory Exam: Clear to Ausculation Bilateral. absent: Rales, Rhonchi, Wheezes - Cardiovascular Exam Cardiovascular Exam: REGULAR RHYTHM, +S1, +S2 - GI/Abdominal Exam GI & Abdominal Exam: Soft, Normal Bowel Sounds. absent: Tenderness - Extremities Exam Extremities Exam: Normal Capillary Refill. absent: Pedal Edema - Neurological Exam Neurological Exam: Alert, Awake, Oriented x3 - Psychiatric Exam Psychiatric exam: Normal Affect, Normal Mood - Skin Skin Exam: Dry, Intact Assessment and Plan - Assessment and Plan (Free Text) Assessment: Uncontrolled Diabetes Mellitus type II - Insulin regimen adjusted yesterday 08/19 as below. Sugars today have been better controlled. -Dr. Flower consulted 08/20 - f/u recs - HbA1C previous - 10.2, current - 10.3 - Lantus 20 Units SC HS - Novolog 8 units SC TIDAC - ISS low dose - Lisinopril 2.5mg Po QD - Hypoglycemia protocol - accuchecks ACHS - dietary referral for DM - help is appreciated UTI - Urine cultures positive for gram + Cocci - Continue Cipro 500mg PO BID x5 days (last dose to finish on 08/14) Unintentional weight loss - reports 80 pound weight loss in the last year - reports diarrhea for the past year - CT abdomen and pelvis PO contrast 08/18: - No definitive or suspicious abdominal or pelvic findings other than borderline thickening of the bladder. Center potential cystitis or outlet obstruction. Clinically correlate further. The lack of IV contrast limits interpretation. Prominent extrarenal pelvis left kidney. No obstructive uropathy bilaterally. Prominent extrarenal pelvis left kidney. No obstructive uropathy bilaterally. Peripheral neuropathy - continue gabapentin 400mg PO TID hx of seizure/DT - continue keppra 250 mg PO BID Tobacco use disorder - Continue nicotine patch 21/24hr alcohol use disorder - Continue management as per psych Plan discussed with Dr. Jori Anderson, PGY-1
[2018-08-20] MEDS: Multiple Vitamins Tab PO SCH (10:09)
[2018-08-20] MEDS: Hydrocortisone 1% Cream (30 GM) TOP SCH (17:10)
--- NOTE | 2018-08-20 20:59 | PCM.PYCHPN ---
Psychiatric Progress Note - Psychiatric Progress Note Patient seen today, length of contact: 15 minutes Patient Chief Complaint: I'm not feeling better. Problems Identified/Issues Discussed: Patient seen, chart reviewed, case discussed with the staff. Issues related to illness and treatment were discussed with the patient and staff. Reported compliant with treatment with no adverse affects. Tolerating treatment very well. Patient reported not feeling better. Still has headache, body aches, drowsiness, no energy. Mood reported as depressed. Affect appropriate. Memory intact. The psychomotor activity. Speech soft with good eye contact. Speech soft with good eye contact. Patient's blood sugar is still not in control. Will call medical consult. Patient needs more time for stabilization of his blood glucose. Aftercare discussed with the patient. Patient denied any delusions, no auditory or visual hallucinations, no suicidal ideations or homicidal ideations at the time of evaluation. Medical Problems: Diabetes mellitus Diagnostic Results: Reviewed DSM 5 Symptoms Update: Some improvement with treatment. Medication Change: No Medical Record Reviewed: Yes Consults ordered or reviewed: Requested medical consult. Mental Status Examination - Cognitive Function Orientation: Person, Place, Situation, Time Memory: Intact Attention: WNL Concentration: WNL Association: [facility] Fund of Knowledge: [facility] Decription of patient's judgement and insights: Fair - Mood Mood: Depressed - Affect Affect: Depressed - Speech Speech: Appropriate - Formal Thought Process Formal Thought Process: No Impairment Psychotic Thoughts and Behaviors: None - Suicidal Ideation Suicidal Ideation: No - Homicidal Ideation Homicidal Ideation: No Goal/Treatment Plan - Goal/Treatment Plan Need for Continued Stay: Remain at risks for inpatient hospitalization, Discharge may exacerbated symptoms, Severe functional impairment Progress Toward Problem(s) and Goals/Treatment Plan: Some improvement with treatment. Patient/staff education. Supportive therapy. Medical consult for abnormal blood glucose. Aftercare discussed with the patient. Patient will also speak with social sciences professor to find a place for follow-up care after discharge from the hospital. Continue rest of the treatment as before. Estimated Date of D/C: 08/21/18 - Smoking Cessation Smoking Cessation Initiated: Yes
[2018-08-20] MEDS: (Lantus) Insulin Glargine, Recombinant SC SCH (21:28)
--- NOTE | 2018-08-21 03:21 | CON ---
DATE: 08/20/2018 ENDOCRINOLOGY CONSULT HISTORY OF PRESENT ILLNESS: This is a 42-year-old male with history of chronic alcoholism, presenting here with recent alcoholic intoxication and admitted to the alcohol detox unit and is also being referred now for diabetic evaluation because of extremes of glycemic fluctuation. PAST MEDICAL HISTORY: History of type 1 insulin-dependent diabetes with very poor compliance and adherence to his insulin therapy as prescribed by his physician, history of hypertension and dyslipidemia, history of chronic schizoaffective disorder with schizophrenia and major depressive symptoms with recent auditory hallucinations, history of seizure disorder and recent delirium tremens with multiple alcoholic episodes as noted. History of some type of alcoholic liver disease, the exact nature is not noted at this time. FAMILY HISTORY: Positive for hypertension and diabetes. SOCIAL HISTORY: The patient admits to polysubstance abuse with chronic alcoholism and recent alcoholic intoxication with heroin and cocaine and marijuana use as noted. Also admits to nicotine dependence and smokes a pack a day for many years now. REVIEW OF SYSTEMS: As mentioned above, admits to generalized body weakness with easy fatigability and tiredness and suboptimal energy level. Also admits to progressive dizziness and lightheadedness, worse on the day of admission with marked insomnia and obstructive sleep patterns. No chest pains or palpitations. His oral intake has been variable with nausea, dyspepsia, and vague upper abdominal pain with marked polyuria, nocturia, and polydipsia. PHYSICAL EXAMINATION: GENERAL: This is an average-built male, in no apparent distress. VITAL SIGNS: Blood pressure of 150/90, pulse of 100 beats per minute and regular, temperature 98, respirations 20, height is 5 feet, weight is 130 pounds. HEENT: Head, normocephalic. Eyes, anicteric with pink conjunctivae. Funduscopy is not possible at this time. Ears, nose, and throat otherwise normal. NECK: Supple. Thyroid gland is normal sized. No carotid bruits or cervical adenopathy. CARDIOPULMONARY: Some adynamic precordium. S1 and S2 are rapid and regular. LUNGS: Clear to auscultation. ABDOMEN: Flat and soft with positive bowel sounds. EXTREMITIES: No peripheral edema. Pulses are +2 bilaterally. LABORATORY DATA: His chemistry today showed a BUN of 6, sodium 138, potassium 3.4, chloride 105, CO2 25, glucose 52, creatinine 0.6. His bedtime glucose was 269-306 and 416 mg per dL. He has elevated liver transaminases. The A1c is 10.3%, clearly elevated and indicative of suboptimal metabolic control of his diabetic condition. ASSESSMENT: This is a 42-year-old male with uncontrolled and decompensated type 1 insulin-dependent diabetes with marked hyperglycemic accelerations and supervening rn surgical hypoglycemia related to the variability of his oral intake and subtherapeutic insulin regimen, and this has now been replaced for further diabetic evaluation and management. He has also significant history of polysubstance abuse as mentioned and with underlying chronic schizoaffective disorder. PLAN OF MANAGEMENT: We will continue to modify basal and bolus insulin regimen as ordered, and we will serve his overnight glycemic fluctuations and adjust and titrate his dose regimen accordingly. We will continue the NovoLog given as 8 units t.i.d. before meals to start today as ordered. We will continue the basal insulin given as Lantus 20 units subcutaneously at bedtime daily as given. We will modify, however, the coverage scale to obviate hypoglycemia, and detailed orders have been given especially to prevent rn surgical hypoglycemia overnight as noted. We will obtain serial chemistries and supplement accordingly as needed. We will follow. Zoie Flower MD
[2018-08-21 06:53] LABS: BASO # 0.1 K/uL (0.0-0.2); BASO % 1.1 % (0.0-2.0); EOS # 0.1 K/uL (0.0-0.7); EOS % 1.9 % (0.0-4.0); HEMOGLOBIN 12.7 g/dL (12.0-18.0); LYMPH # 2.5 K/uL (1.0-4.3); LYMPH % 41.1 % (20.0-40.0); MEAN CORPUSCULAR HEMOGLOBIN 33.8 pg (27.0-31.0); MEAN CORPUSCULAR HGB CONC 34.2 g/dL (33.0-37.0); MEAN PLATELET VOLUME 9.5 fL (7.2-11.7); MONO # 1.1 K/uL (0.0-0.8); MONO % 17.9 % (0.0-10.0); NEUT # 2.3 K/uL (1.8-7.0); RBC 3.75 Mil/uL (4.40-5.90); RED CELL DISTRIBUTION WIDTH 14.1 % (11.5-14.5); WHITE BLOOD COUNT 6.1 K/uL (4.8-10.8)
--- NOTE | 2018-08-21 07:28 | CP.PCM.PN ---
Subjective - Date & Time of Evaluation Date of Evaluation: 08/21/18 Time of Evaluation: 07:31 - Subjective Subjective: PGY-[address] Maura Hsieh Patient seen and examined. No acute events overnight per nursing. He continues to have withdrawal symptoms including tremors and paresthesias of the arms, but states some improvement. Patient's sugars appeared to be better controlled yesterday morning, but were high again in the afternoon. Patient continues drinking sugary juices - I did preparole counseling aide the patient again this morning that his blood sugar cannot be controlled if he continues consuming large amounts of sugar. Otherwise patient has no new complaints at this time - denies chest pain, headache, nausea, or vomiting. Objective - Vital Signs/Intake and Output Vital Signs (last 24 hours): Temp Pulse Resp BP Pulse Ox 97.9 F 93 H 18 102/68 97 08/21/18 06:05 08/21/18 06:05 08/21/18 06:05 08/21/18 06:05 08/21/18 06:05 - Medications Medications: Current Medications Aripiprazole (Abilify) 10 mg PO QPM [facility] Last Admin: 08/20/18 18:31 Dose: 10 mg Ciprofloxacin (Cipro) 500 mg PO BID [facility]; Protocol Stop: 08/25/18 10:00 Last Admin: 08/20/18 17:11 Dose: 500 mg Clonidine HCl (Catapres) 0.1 mg PO Q4H PRN PRN Reason: Symptoms of alcohol withdrawl Dextrose (Dextrose 50% Inj) 0 ml IVP .STAT PRN; Protocol PRN Reason: Hypoglycemia Protocol Dextrose (Glutose 15) 0 gm PO .ONCE PRN; Protocol PRN Reason: Hypoglycemia Protocol Folic Acid (Folic Acid) 1 mg PO DAILY [facility] Last Admin: 08/20/18 10:09 Dose: 1 mg Gabapentin (Neurontin) 400 mg PO TID [facility] Last Admin: 08/20/18 17:11 Dose: 400 mg Glucagon (Glucagen Diagnostic Kit) 0 mg IM .STAT PRN; Protocol PRN Reason: Hypoglycemia Protocol Hydrocortisone (Cortizone 1% Cream) 0 gm TOP BID [facility] Last Admin: 08/20/18 17:10 Dose: 1 applic Hydroxyzine HCl (Atarax) 25 mg PO Q4H PRN PRN Reason: Anxiety Last Admin: 08/21/18 02:15 Dose: 25 mg Dextrose (Dextrose 5% In Water 1000 Ml) 1,000 mls @ 0 mls/hr IV .Q0M PRN; Protocol PRN Reason: Hypoglycemia Protocol Ibuprofen (Motrin Tab) 400 mg PO Q6H PRN PRN Reason: Pain, moderate (4-7) Last Admin: 08/19/18 07:56 Dose: 400 mg Insulin Aspart (Novolog) 8 unit SC TIDAC ANU Last Admin: 08/20/18 16:40 Dose: 8 unit Insulin Aspart (Novolog) 0 unit SC ACHS [facility] Last Admin: 08/20/18 21:26 Dose: 5 units Insulin Glargine (Lantus) 20 unit SC HS [facility] Last Admin: 08/20/18 21:28 Dose: 20 units Levetiracetam (Keppra) 250 mg PO BID [facility] Last Admin: 08/20/18 17:11 Dose: 250 mg Lisinopril (Zestril) 2.5 mg PO DAILY [facility] Last Admin: 08/20/18 10:04 Dose: Not Given Loperamide HCl (Imodium) 2 mg PO QID PRN PRN Reason: Loose stools Last Admin: 08/20/18 19:23 Dose: 2 mg Lorazepam (Ativan) 1 mg PO Q4H PRN PRN Reason: Symptoms of alcohol withdrawl Last Admin: 08/20/18 17:16 Dose: 1 mg Lorazepam (Ativan) 1 mg PO Q12H [facility]; Taper Stop: 08/22/18 09:59 Last Admin: 08/20/18 21:31 Dose: 1 mg Mirtazapine (Remeron) 15 mg PO HS [facility] Last Admin: 08/20/18 21:31 Dose: 15 mg Multivitamins (Hexavitamin) 1 tab PO DAILY [facility] Last Admin: 08/20/18 10:09 Dose: 1 tab Nicotine (Nicoderm Cq) 1 patch TD DAILY [facility] Last Admin: 08/20/18 10:09 Dose: 1 patch Thiamine HCl (Vitamin B1 Tab) 100 mg PO DAILY [facility] Last Admin: 08/20/18 10:10 Dose: 100 mg Trazodone HCl (Desyrel) 100 mg PO HS PRN PRN Reason: Insomnia Last Admin: 08/19/18 21:18 Dose: 100 mg - Labs Labs: 08/21/18 06:30 08/20/18 06:42 - Constitutional Appears: Non-toxic, No Acute Distress - Head Exam Head Exam: ATRAUMATIC, NORMAL INSPECTION - Eye Exam Eye Exam: EOMI - ENT Exam ENT Exam: Mucous Membranes Moist - Respiratory Exam Respiratory Exam: Clear to Ausculation Bilateral, NORMAL BREATHING PATTERN. absent: Rhonchi, Wheezes - Cardiovascular Exam Cardiovascular Exam: REGULAR RHYTHM, +S1, +S2 - GI/Abdominal Exam GI & Abdominal Exam: Soft, Normal Bowel Sounds. absent: Tenderness - Extremities Exam Extremities Exam: absent: Pedal Edema Additional comments: tremors - Neurological Exam Neurological Exam: Alert, Awake, Oriented x3 - Psychiatric Exam Psychiatric exam: Depressed, Normal Affect - Skin Skin Exam: Dry, Intact Assessment and Plan - Assessment and Plan (Free Text) Assessment: Uncontrolled Diabetes Mellitus type II - Afternoon/evening blood sugars have been high. Patient continues eating/drinking sugary foods - discussed his sugars cannot be controlled if he continues high sugar intake. -Dr. Flower consulted 07/27 - HbA1C previous - 10.2, current - 10.3 - Lantus 20 Units SC HS - Novolog 8 units SC TIDAC - ISS low dose - Lisinopril 2.5mg Po QD - Hypoglycemia protocol - accuchecks ACHS - dietary referral for DM - help is appreciated - Patient to be transferred to inpatient rehabilitation tomorrow. --- Medicine is signing off. If patient continues to be noncompliant with diet, he diabetes will continue to be uncontrolled. Thus we had extensive convo with the patient regarding compliance. Dr. Flower may provided any additional insulin adjustments and insulin prescriptions, we appreciate your help. UTI - Urine cultures positive for gram + Cocci - Continue Cipro 500mg PO BID x5 days (last dose to finish on 08/14) Unintentional weight loss - reports 80 pound weight loss in the last year - reports diarrhea for the past year - CT abdomen and pelvis PO contrast 08/18: - No definitive or suspicious abdominal or pelvic findings other than borderline thickening of the bladder. Center potential cystitis or outlet obstruction. Clinically correlate further. The lack of IV contrast limits interpretation. Prominent extrarenal pelvis left kidney. No obstructive uropathy bilaterally. Prominent extrarenal pelvis left kidney. No obstructive uropathy bilaterally. Alcohol Detox - Management per psych - Patient still experiencing withdrawal symptoms, states some improvement of tremors Peripheral neuropathy - continue gabapentin 400mg PO TID hx of seizure/DT - continue keppra 250 mg PO BID Tobacco use disorder - Continue nicotine patch 21/24hr alcohol use disorder - Continue management as per psych Plan discussed with Dr. Jori Anderson, PGY-1
[2018-08-21 07:43] LABS: ALB/GLOB RATIO 1.7 (1.0-2.1); ALBUMIN 4.3 g/dL (3.5-5.0); ALT/SGPT 122 U/L (21-72); AST/SGOT 85 U/L (17-59); BLOOD UREA NITROGEN 6 mg/dL (9-20); CALCIUM 9.1 mg/dl (8.6-10.4); GFR NON-AFRICAN AMERICAN > 60
[2018-08-21] MEDS: (Novolog) Insulin Aspart, Recombinant 100 u/ml 10 ml vial SC SCH ×6 (07:48→21:31)
[2018-08-21] MEDS: Hydrocortisone 1% Cream (30 GM) TOP SCH ×2 (09:50→17:32)
[2018-08-21] MEDS: Multiple Vitamins Tab PO SCH (09:56)
--- NOTE | 2018-08-21 16:17 | PCM.PYCHPN ---
Psychiatric Progress Note - Psychiatric Progress Note Patient seen today, length of contact: 15 minutes Patient Chief Complaint: I'm still not feeling better. Problems Identified/Issues Discussed: Patient seen, chart reviewed, case discussed with the staff. Issues related to illness and treatment were discussed with the patient and staff. Reported compliant with treatment with no adverse affects. Tolerating treatment very well. Patient reported not feeling better. Still has headache, body aches, drowsiness, no energy. Mood reported as depressed. Affect appropriate. Memory intact. The psychomotor activity. Speech soft with good eye contact. Speech soft with good eye contact. Patient's blood sugar is still not in control. Patient was seen by medicine. Medications were adjusted. His blood sugar is still very high. Patient was scheduled for discharge today, not cleared medically for discharge because of his very high blood glucose. Patient needs more time for stabilization of his blood glucose. We'll discharge the patient once cleared medically. Aftercare discussed with the patient. Patient denied any delusions, no auditory or visual hallucinations, no suicidal ideations or homicidal ideations at the time of evaluation. Medical Problems: Diabetes mellitus Diagnostic Results: Reviewed DSM 5 Symptoms Update: Some improvement with treatment. Medication Change: No Medical Record Reviewed: Yes Consults ordered or reviewed: Reviewed Mental Status Examination - Cognitive Function Orientation: Person, Place, Situation, Time Memory: Intact Attention: WNL Concentration: WNL Association: WNL Fund of Knowledge: [facility] Decription of patient's judgement and insights: Fair - Mood Mood: Depressed - Affect Affect: Depressed - Speech Speech: Appropriate - Formal Thought Process Formal Thought Process: No Impairment Psychotic Thoughts and Behaviors: None - Suicidal Ideation Suicidal Ideation: No - Homicidal Ideation Homicidal Ideation: No Goal/Treatment Plan - Goal/Treatment Plan Need for Continued Stay: Remain at risks for inpatient hospitalization, Discharge may exacerbated symptoms, Severe functional impairment Progress Toward Problem(s) and Goals/Treatment Plan: Some improvement with treatment. Patient/staff education. Supportive therapy. Aftercare discussed with the patient. Social workers are helping patients to find a follow-up place. Continue rest of the treatment as before. Estimated Date of D/C: 08/22/18 If changed, why: Patient is not cleared medically. - Smoking Cessation Smoking Cessation Initiated: Yes
[2018-08-21] MEDS ORDERED: (Novolog) Insulin Aspart, Recombinant 100 u/ml 10 ml vial SC SCH (17:00)
--- NOTE | 2018-08-21 17:56 | PN ---
DATE: 08/21/2018 ENDOCRINOLOGY FOLLOWUP NOTE LOCATION: Room 757. SUBJECTIVE: This is a 42-year-old male with recent uncontrolled type 1 insulin-dependent diabetes, presenting here for alcohol detox with underlying chronic schizoaffective disorder and major depression and is now also being followed closely for metabolic management. His glycemic levels are fluctuating but improved and the glucose values today were actually 241 at breakfast time and 268 at lunchtime as noted. His bedtime glucose levels were extremely elevated ranging from 315 to over 500 mg/dL. LABORATORY DATA: His chemistries showed a BUN of 6, sodium 135, potassium 4.4, chloride of 100, CO2 of 27, glucose 216 and creatinine 0.5. ASSESSMENT: This is a 42-year-old male with uncontrolled and decompensated type 1 insulin dependent diabetes with marked hyperglycemic accelerations, elected to a subtherapeutic insulin regimen, now undergoing alcohol detoxification and psychiatric evaluation and management for underlying schizophrenia and chronic schizoaffective disorder. PLAN OF MANAGEMENT: We will modify once again his basal and bolus insulin regimen to optimize metabolic control. We will increase the NovoLog to 12 units subcutaneous t.i.d. before meals to start today as ordered. We will also continue the low-dose correction scale using NovoLog insulin for coverage only above 300 ____ hyperglycemia and detailed orders have been given. We will also titrate and increase his Lantus given as basal insulin to 30 units subcutaneous at bedtime daily prescribed tonight. We will obtain serial chemistries and supplement accordingly as needed. We will follow. Zoie Flower MD
[2018-08-21] MEDS ORDERED: (Lantus) Insulin Glargine, Recombinant SC SCH (22:00)
[2018-08-22] MEDS: (Novolog) Insulin Aspart, Recombinant 100 u/ml 10 ml vial SC SCH ×4 (08:26→12:38)
[2018-08-22 08:47] VITALS: BP 94/61; PULSE 96; TEMP 97.9; O2SAT 100
[2018-08-22 09:09] LABS: BASO % 1.1 % (0.0-2.0); EOS # 0.1 K/uL (0.0-0.7); HEMOGLOBIN 13.2 g/dL (12.0-18.0); LYMPH # 1.7 K/uL (1.0-4.3); LYMPH % 39.5 % (20.0-40.0); MEAN CELL VOLUME 100.2 fL (80.0-94.0); MEAN CORPUSCULAR HEMOGLOBIN 33.4 pg (27.0-31.0); MEAN CORPUSCULAR HGB CONC 33.4 g/dL (33.0-37.0); MEAN PLATELET VOLUME 9.2 fL (7.2-11.7); MONO # 0.6 K/uL (0.0-0.8); MONO % 13.5 % (0.0-10.0); NEUT # 1.9 K/uL (1.8-7.0); NEUT % 43.9 % (50.0-75.0); NRBC % 0.1 % (0.0-2.0); RBC 3.95 Mil/uL (4.40-5.90); RED CELL DISTRIBUTION WIDTH 14.2 % (11.5-14.5); WHITE BLOOD COUNT 4.3 K/uL (4.8-10.8)
[2018-08-22 09:25] LABS: ALB/GLOB RATIO 1.7 (1.0-2.1); ALBUMIN 4.9 g/dL (3.5-5.0); ALT/SGPT 122 U/L (21-72); AST/SGOT 99 U/L (17-59); BLOOD UREA NITROGEN 8 mg/dL (9-20); CALCIUM 9.2 mg/dl (8.6-10.4); GFR NON-AFRICAN AMERICAN > 60
[2018-08-22] MEDS: Multiple Vitamins Tab PO SCH (09:44)
[2018-08-22] MEDS: Hydrocortisone 1% Cream (30 GM) TOP SCH (09:46)
--- NOTE | 2018-08-22 19:00 | PN ---
DATE: 08/22/2018 ENDOCRINOLOGY FOLLOWUP NOTE LOCATION: Room 757. SUBJECTIVE: This is a 42-year-old male with recent uncontrolled type 1 insulin-dependent diabetes, now being followed closely for metabolic management. He presented here with acute alcoholic intoxication with underlying chronic alcoholism and has had recent hyperglycemic accelerations as noted thereof. His glucose values levels are fluctuating but improved and today's glucose levels have ranged from 134 to 175 mg/dL. It was still markedly elevated last night at 304 to 412 mg/dL. LABORATORY DATA: His latest chemistries shows a BUN of 8, sodium 134, potassium 4.2, chloride 98, CO2 of 29, glucose 138, and creatinine 0.7. Hemoglobin A1c is 10.3% which is extremely elevated especially for a type 1 diabetic and clearly indicative of suboptimal metabolic control of his diabetic condition even prior to this admission and consult. ASSESSMENT: This is a 42-year-old male with uncontrolled and decompensated type 1 insulin-dependent diabetes with acute alcoholic intoxication and also underlying chronic alcoholism, presenting here to the detox unit and now being transferred to the rehabilitation facility. Moreover, he has markedly uncontrolled type 1 insulin-dependent diabetes related to poor adherence to his diet and especially to his insulin regimen as noted and given. PLAN OF MANAGEMENT: I discussed lengthily with the patient at the bedside the imperative need for tighter metabolic control, cannot but overemphasize the specialities of type 1 diabetic and his very high risk for future microvascular complications as mentioned with the patient at bedside. In terms of management, we will modify his current basal and bolus insulin regimen to optimize metabolic control. Detailed orders have been given and this was also explained to the patient lengthily at bedside regarding the change of dose regimen to a higher dosing protocol to optimize metabolic control. We will increase his NovoLog to 20 units subcutaneous three times a day before meals to start today as ordered. We will also increase the Lantus to 40 units subcutaneous at bedtime daily and this was given last night initially and will be given every night at bedtime as ordered. We will continue the low-dose correction scale using NovoLog insulin as given. We will obtain serial chemistries and supplement accordingly as needed. We will follow. Zoie Flower MD [facility] # [id number]
[2018-08-22] MEDS ORDERED: (Lantus) Insulin Glargine, Recombinant SC SCH (22:00)
--- NOTE | 2018-08-22 23:41 | PCM.PYCHDC ---
Mental Status Examination - Mental Status Examination Orientation: Person, Place, Situation, Time Memory: Intact Mood: Neutral Affect: Other (Appropriate) Speech: Appropriate Attention: WNL Concentration: WNL Association: WNL Fund of Knowledge: WNL Formal Thought Process: No Impairment Description of patient's judgement and insight: Fair Psychotic Thoughts and Behaviors: None Suicidal Ideation: No Current Homicidal Ideation?: No Discharge Summary - Discharge Note Reason for Hospitalization: Alcohol use disorder severe. Tobacco use disorder severe. Cannabis use disorder mild. Schizoaffective disorder depressive type Laboratory Data: Abnormal Lab Results 08/22/18 08/22/18 08/22/18 01:10 07:57 09:00 WBC 4.3 L RBC 3.95 L Hgb 13.2 Hct 39.5 MCV 100.2 H MCH 33.4 H MCHC 33.4 RDW 14.2 Plt Count 129 L D MPV 9.2 Neut % (Auto) 43.9 L Lymph % (Auto) 39.5 Kern % (Auto) 13.5 H Eos % (Auto) 2.0 Baso % (Auto) 1.1 Neut # (Auto) 1.9 Lymph # (Auto) 1.7 Kern # (Auto) 0.6 Eos # (Auto) 0.1 Baso # (Auto) 0.0 Differential Comment Sodium Potassium Chloride Carbon Dioxide Anion Gap BUN Creatinine Est GFR ( Amer) Est GFR (Non-Af Amer) POC Glucose (mg/dL) 304 H 175 H Random Glucose Calcium Total Bilirubin AST ALT Alkaline Phosphatase Total Protein Albumin Globulin Albumin/Globulin Ratio 08/22/18 08/22/18 09:00 11:39 WBC RBC Hgb Hct MCV MCH MCHC RDW Plt Count MPV Neut % (Auto) Lymph % (Auto) Kern % (Auto) Eos % (Auto) Baso % (Auto) Neut # (Auto) Lymph # (Auto) Kern # (Auto) Eos # (Auto) Baso # (Auto) Differential Comment Sodium 134 Potassium 4.2 Chloride 98 Carbon Dioxide 29 Anion Gap 12 BUN 8 L Creatinine 0.7 L Est GFR ( Amer) > 60 Est GFR (Non-Af Amer) > 60 POC Glucose (mg/dL) 134 H Random Glucose 138 H D Calcium 9.2 Total Bilirubin 0.7 AST 99 H ALT 122 H Alkaline Phosphatase 90 Total Protein 7.8 Albumin 4.9 Globulin 2.9 Albumin/Globulin Ratio 1.7 Consultations:: List each consultation separately and include: 1. Reason for request. 2. Findings. 3. Follow-up Consultations: Reviewed Summary of Hospital Course include:: 1. Description of specific treatment plan utilized for patients during their course of treatmen. 2. Summarize the time- course for resolution of acute symptoms and/or regressed behaviors. 3. Describe issues identified and worked on during hospitalization. 4. Describe medication utilized. 5. Describe medical problems identified and treated. 6. Reassessment of suicide risk Summary of Hospital Course: This is a 42-year-old male, single with no child, lives with his mother, unemployed, on disability due to psychosis. He is here for alcohol detox; he drinks up to 20 beers of 12 times cans, for the last 28 years. He states it got worse in his 20s. He reports history of seizures then DTs and he was even given Depakote for seizures. However, his liver is impaired and he agreed to change the medication to a safer one. He was in detox 4 times and rehab also 4 times. His longest sobriety was 8 months. He used cocaine heroine and marijuana in the past but average was about once a month. He smokes 1 pack/day cigarettes. The patient was diagnosed with schizophrenia, however he reports mostly depressive symptoms and vague auditory hallucinations. He denies feeling paranoid or having other types of hallucinations. He is noncompliant with his medications. The patient does not have a thought disorder and his affect is only constricted. It is likely that the diagnosis is schizoaffective or even perhaps bipolar disorder. Patient denies suicidal and homicidal ideation. Past psychiatric: He admits to having been hospitalized a couple of times in psychiatry he had one suicide attempt "long ago" Family psych history: Unknown Medical history: Diabetes, type I-noncompliant with treatment. During his stay in the hospital patient was treated with Librium taper for alcohol withdrawal symptoms. Patient was also started on other PRN medications. Patient was attending groups and other activities on the unit. Patient has type 1 diabetes which was very uncontrolled due to noncompliance with the treatment. Patient was seen by pediatric physician assistant during his stay in the hospital and adjusted his medications. With above treatment patient started feeling better, had no withdrawal symptoms, his blood sugar started becoming better. Today patient was stable and ready for discharge from the hospital. Patient was also cleared by pediatric physician assistant with recommendations to continue medications as prescribed before. Prescriptions given for all the medications including insulin according to recommendations of pediatric physician assistant. ID time of evaluation and discharge, patient was awake, alert and oriented x3, had no delusions, no auditory or visual hallucinations, no suicidal ideations or homicidal ideations. Patient was discharged in a stable condition. - Final Diagnosis (DSM 5) Condition upon Discharge: STABLE Disposition: REHAB FACILITY/REHAB UNIT Follow-up Treatment Plan: Patient will go to [facility] rehab for follow-up care after discharge from the hospital. Prescriptions/Medication Reconciliation: ARIPiprazole [Abilify] 10 mg PO QPM #30 tab Gabapentin [Neurontin] 400 mg PO TID #90 cap Insulin Aspart Prot/Insuln Asp [Novolog Mix 70-30 Vial] 100 unit SQ TIDAC #1 vial Insulin Aspart, Recombinant [Novolog] 20 unit SC TIDAC 30 Days unit Insulin Glargine, Recombina [Lantus] 40 unit SC HS 30 Days unit Insulin Glargine,Hum.rec.anlog [Lantus Solostar] 100 unit SQ HS #1 insuln.pen levETIRAcetam [Keppra] 250 mg PO BID #60 tab Lisinopril [Zestril] 2.5 mg PO DAILY #30 tab Mirtazapine [Remeron] 15 mg PO HS #30 tab Pen Needle, Diabetic [1St Tier Unifine Pentips Plus] 1 each MC HS #90 dis.needle Syring-Needl,Disp,Insul,0.3 ml [Insulin Syringe] 1 each MC TIDAC #90 disp.syrin - Smoking Cessation Smoking Cessation Medication prescribed: No - Antipsychotic Medications Pt discharged on 2 or more routine antipsychotic medications: No
== END 2018-08-22 01:10 | disposition home or self-care (01) | DRG 895 ==
LOC: C.ER 03:36 → C.9E 07:10 → C.7D 07:54
PROVIDERS: ADMIT Psychiatry & Neurology Psychiatry; ATTEND Psychiatry & Neurology Psychiatry
PROC: HZ2ZZZZ Detoxification Services for Substance Abuse Treatment (ICD-10-PCS; principal; 2018-08-17)
PROC: HZ52ZZZ Individual Psychotherapy for Substance Abuse Treatment, Cognitive-Behavioral (ICD-10-PCS; 2018-08-17)
PROC: HZ59ZZZ Individual Psychotherapy for Substance Abuse Treatment, Supportive (ICD-10-PCS; 2018-08-17)
PROC: HZ56ZZZ Individual Psychotherapy for Substance Abuse Treatment, Psychoeducation (ICD-10-PCS; 2018-08-17)
PROC: HZ46ZZZ Group Counseling for Substance Abuse Treatment, Psychoeducation (ICD-10-PCS; 2018-08-17)
PROC: GZHZZZZ Group Psychotherapy (ICD-10-PCS; 2018-08-17)
PROC: GZ58ZZZ Individual Psychotherapy, Cognitive-Behavioral (ICD-10-PCS; 2018-08-17)
PROC: GZ56ZZZ Individual Psychotherapy, Supportive (ICD-10-PCS; 2018-08-17)
PROC: HZ42ZZZ Group Counseling for Substance Abuse Treatment, Cognitive-Behavioral (ICD-10-PCS; 2018-08-17)
DX: F10.230 Alcohol dependence with withdrawal, uncomplicated (principal); N39.0 Urinary tract infection, site not specified; F10.220 Alcohol dependence with intoxication, uncomplicated; E10.42 Type 1 diabetes mellitus with diabetic polyneuropathy; E10.649 Type 1 diabetes mellitus with hypoglycemia without coma; E10.65 Type 1 diabetes mellitus with hyperglycemia; Y90.0 Blood alcohol level of less than 20 mg/100 ml; F12.10 Cannabis abuse, uncomplicated; F25.1 Schizoaffective disorder, depressive type; F17.210 Nicotine dependence, cigarettes, uncomplicated; F41.9 Anxiety disorder, unspecified; G40.909 Epilepsy, unspecified, not intractable, without status epilepticus; I10 Essential (primary) hypertension; Z91.14 Patient's other noncompliance with medication regimen; Z79.4 Long term (current) use of insulin; Z83.3 Family history of diabetes mellitus; E78.5 Hyperlipidemia, unspecified